=== PATIENT | male | born 1965 | race Caucasian/White ===

== ENCOUNTER → 2020-11-27 | Outpatient (CLI) | payer OTHER ==
--- NOTE | 2020-11-27 16:00 | RAD ---
EXAM: Lumbar spine, 2 views. HISTORY: Chronic pain. COMPARISON: None. FINDINGS: 2 views of the lumbar spine are obtained. There is 3 mm retrolisthesis of L2 on L3 and L1 o n L2. There is 2 mm retrolisthesis of L3 on L4. There is multilevel endplate remodeling. 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 There is no fracture. IMPRESSION: 1. Multilevel degenerative change, described above. 2. No acute osseous finding. Electronically signed by: Annamarie Wilson MD (11/27/2020 3:58 PM) [facility]
== END ==
LOC: RAD 12:16
PROVIDERS: ATTEND Anesthesiology Pain Medicine
DX: M47.816 Spondylosis without myelopathy or radiculopathy, lumbar region (principal); M43.16 Spondylolisthesis, lumbar region
CPT/HCPCS: 72100